=== PATIENT | female | born 1955 | race Caucasian/White ===

== ENCOUNTER 2017-12-12 12:36 | Outpatient (CLI) | payer OTHER ==
[2017-12-12 16:42] LABS: Hemoglobin 13.1 g/dL (12.0-16.0); Mean Corpuscular HGB CONC 33.9 g/dL (32.0-36.0); Mean Corpuscular Hemoglobin 31.2 pg (27.0-31.0); Mean Corpuscular Volume 92.1 fL (78.0-98.0); Platelet Count 280 thou/uL (130-400); RBC Distribution Width 11.7 % (11.5-14.5); Red Blood Cell (RBC) Count 4.19 mill/uL (4.20-5.40); White Blood Cell (WBC) Count 6.6 thou/uL (4.8-10.8)
[2017-12-12 17:03] LABS: Anion Gap 12 mmol/L (10-20); BUN (Urea Nitrogen) 18 mg/dL (9.8-20.1); Calc. Creatinine Clearance 0 mL/min (70-130); Carbon Dioxide 28 mmol/L (23-31); Chloride 103 mmol/L (98-107); Estimated GFR-MDRD 77; Glucose 91 mg/dL (80-115); Potassium 3.7 mmol/L (3.5-5.1); Sodium 139 mmol/L (136-145)
--- NOTE | 2017-12-13 13:28 | EKG ---
Test Reason : Blood Pressure : / mmHG Vent. Rate : 070 BPM Atrial Rate : 070 BPM P-R Int : 186 ms QRS Dur : 088 ms QT Int : 392 ms P-R-T Axes : 048 079 061 degrees QTc Int : 423 ms Normal sinus rhythm Normal ECG Confirmed by MARYANA OVIEDO ([id number]) on 12/13/2017 1:28:08 PM Referred By: FORTINO Confirmed By:MARYANA OVIEDO
== END 2017-12-12 12:37 | disposition home or self-care (01) ==
LOC: LABBT 12:36
PROVIDERS: ATTEND Obstetrics & Gynecology
DX: Z01.812 Encounter for preprocedural laboratory examination (principal); N81.10 Cystocele, unspecified
CPT/HCPCS: 80048; 85027; 86850; 86900; 86901; 93005; 93010

== ENCOUNTER 2017-12-12 15:30 | Observation (INO) | payer OTHER ==
[2017-12-12 15:36] VITALS: BMI 21.1
--- NOTE | 2017-12-13 00:23 | HP ---
HISTORY OF PRESENT ILLNESS: Ms. Medley is a 62-year-old white female with previous hysterectomy who has been experiencing pelvic organ prolapse symptoms. She feels a lot of pressure and discomfort in her vaginal area. She has considered a pessary and has tried that, but now is desiring surgical rep air. PAST MEDICAL HISTORY: Chronic hypertension. PAST SURGICAL HISTORY: Hysterectomy. MEDICATIONS: She is on Benicar/hydrochlorothiazide 20/12.5 mg daily for hypertension management. ALLERGIES: She has no known drug allergies. SOCIAL HISTORY: She is a nonsmoker, no significant alcohol use. She is . FAMILY HISTORY: Noncontributory. PHYSICAL EXAMINATION: VITAL SIGNS: Blood pressure is 116/64, weight 127 pounds, height 5 feet 5 inches, BMI 21.1, pulse is regular at 77, respirations 16. HEENT: Within normal limits. CHEST: Clear to auscultation. HEART: Regular rate and rhythm. S1, S2 heart sounds, no murmurs, rubs or gallops. ABDOMEN: Soft, nontender, nondistended with no palpable masses. PELVIC: Vulva and vagina had no lesions. She had grade 3 cystocele with minimal grade 1 to 2 anteri or vaginal wall prolapse with a grade 2 rectocele. ASSESSMENT: Symptomatic grade 3 cystocele and grade 2 rectocele with some grade 1 to 2 anterior vagi nal wall prolapse. PLAN: Proceed with anterior and posterior repair. Risks and benefits of procedure discussed in deta il to surgery. She is scheduled for surgery on 12/16/2017.
[2017-12-16] MEDS ORDERED: CEFAZOLIN/Water 2 GM/20 ML SYRINGE ONE (08:39)
[2017-12-16] MEDS ORDERED: Lidocaine 1% w/Epinephrine 1:100K 30 ML VIAL ONE (08:53)
[2017-12-16] MEDS ORDERED: Midazolam HCl 2 mg/2 ml Vial ONE (09:05)
[2017-12-16] MEDS ORDERED: Fentanyl 100 MCG/2 ML VIAL ONE ×2 (09:06→10:53)
[2017-12-16] MEDS ORDERED: SUGAMMADEX SODIUM 200 MG/2 ML VIAL ONE (10:23)
[2017-12-16] MEDS ORDERED: Ondansetron HCl/PF 4 MG/2 ML Vial IVP PRN ×2 (10:46→10:47)
[2017-12-16] MEDS ORDERED: Promethazine HCl 25 MG/ML VIAL IM PRN (10:46)
[2017-12-16] MEDS ORDERED: Meperidine HCl/PF 25 MG/ML VIAL SLOW IVP PRN (10:46)
[2017-12-16] MEDS ORDERED: Promethazine HCl 25 MG/ML VIAL SLOW IVP PRN (10:46)
[2017-12-16] MEDS ORDERED: Ketorolac Tromethamine 30 MG/ML VIAL IVP PRN (10:46)
[2017-12-16] MEDS ORDERED: diphenhydrAMINE 25 MG CAP PO PRN (10:47)
[2017-12-16] MEDS ORDERED: traMADol HCl 50 MG TAB PO PRN (10:47)
[2017-12-16] MEDS ORDERED: Acetaminophen 325 MG TAB PO PRN (10:47)
[2017-12-16] MEDS ORDERED: Simethicone Chewable 80 MG TAB PO PRN (10:47)
[2017-12-16] MEDS ORDERED: Lactated Ringer's 1,000 ML IV SCH (11:00)
--- NOTE | 2017-12-16 11:43 | OP ---
DATE OF PROCEDURE: 12/16/2017 PREOPERATIVE DIAGNOSES: A 62-year-old white female with previous hysterectomy with symptomatic grade 3 cystocele and grade 2 rectocele. POSTOPERATIVE DIAGNOSES: A 62-year-old white female with previous hysterectomy with symptomatic grad e 3 cystocele and grade 2 rectocele. PROCEDURE PERFORMED: Anterior and posterior repair. SURGEON: Evelyn Medina M.D. CLEANER INDUSTRIAL SURGEON: Aleida Harman M.D. ANESTHESIA: General endotracheal. ESTIMATED BLOOD LOSS: Less than 50 mL. COMPLICATIONS: None. COUNTS: Correct x2. ANTIBIOTICS: Two grams Ancef [employer] consultant to the OR. FINDINGS: 1. Urethral meatus appeared to be somewhat narrowed, but would allow passage of a size 12 [place] catheter easily with clear urine draining during the process. 2. Anterior cystocele reduced well and clear urine present in Zaragoza catheter post-procedure. 3. Grade 2 rectocele reduced well with no evidence of suture placement in the rectum on post-procedu re rectal examination. DISPOSITION: To the recovery room stable. DESCRIPTION OF OPERATIVE PROCEDURE: The patient previously received informed consent in regard to [facility]. She was taken back to the operating room where she received a general endotracheal anesthetic agent without complications. She was placed in dorsal lithotomy position with the use of Rishi stir rups and prepped and draped in usual sterile fashion. Zaragoza catheter was placed with the previously mentioned findings. A weighted speculum was placed in the vagina. The vaginal cuff line was grasped with 2 Allis clamps. The anterior vaginal mucosa was infiltrated with 1% lidocaine with epinephrine . A vaginal incision was made with Metzenbaum scissors starting from the cuff line to approximately 1.5 cm from the urethral meatus. The edges of the vaginal mucosa were grasped with Allis clamps, int ermittently as the cystocele was dissected both sharply and bluntly reducing the hernia. The endopel diana fascia was then immobilized and then the cystocele defect was then closed with interrupted figure -of-eight sutures of 0 Vicryl beginning most anteriorly near the urethral meatus site and then workin g back towards the vaginal cuff line. The cystocele was reduced in its entirety. The excess vaginal mucosa was trimmed and the vaginal mucosa was then approximated with interrupted [id number] sut ures of 2-0 Vicryl incorporating some of the endopelvic fascia to rid the space for good hemosta sis. Attention was then turned to the posterior repair. The vaginal introitus was grasped with 2 Allis cl amps at the 4 and 8 o'clock position. The posterior vaginal mucosa again was infiltrated with 1% lid ocaine with epinephrine up to the vaginal cuff line. A midline vaginal mucosal incision was made in the posterior vagina with Metzenbaum scissors. This extended up to the cuff line. The edges of the vaginal mucosa were grasped with Allis clamps as this progressed. The rectocele defect again was dagmar ntly and sharply dissected reducing it from the underlying vaginal mucosa and also mobilizing the end opelvic fascia bilaterally. Once the rectocele defect had been reduced, the endopelvic fascia again was plicated in the midline grabbing the edges of the endopelvic fascia and closing this with 0 Vicry l sutures in [id number] stitch fashion starting most proximally towards the vaginal cuff line an d working back towards the introitus. Good reduction of the rectocele was confirmed. The posterior vaginal mucosa was then closed again starting from the cuff line back to the introitus with interrupt ed 2-0 Vicryl sutures incorporating again endopelvic fascia. A rectal exam was then performed and no evidence of an suture placed in the rectal mucosa was noted. A moistened Kerlix was placed. Packin g was placed in the vagina. The Zaragoza catheter was draining clear urine. The patient was awakened f rom anesthesia and transferred to the recovery in stable condition.
[2017-12-16] MEDS ORDERED: Glycopyrrolate 0.2 MG/ML 5 ML SYRINGE ONE (14:28)
[2017-12-16] MEDS ORDERED: diphenhydrAMINE 50 MG/ML VIAL ONE (14:28)
[2017-12-16] MEDS ORDERED: Lidocaine 1% PF 5 ML VIAL ONE (14:28)
[2017-12-16] MEDS ORDERED: Ondansetron HCl/PF 4 MG/2 ML Vial ONE (14:28)
[2017-12-16] MEDS ORDERED: PROPOFOL 200 MG/20 ML VIAL ONE (14:28)
[2017-12-16] MEDS ORDERED: Dexamethasone 20 MG/5 ML VIAL ONE (14:28)
[2017-12-16] MEDS ORDERED: Ibuprofen 800 MG TAB PO SCH (21:00)
[2017-12-16] MEDS ORDERED: Docusate Calcium (SURFAK) 240 MG CAP PO SCH (21:00)
[2017-12-16] MEDS: traMADol HCl 50 MG TAB PO PRN (21:01)
[2017-12-17] MEDS: traMADol HCl 50 MG TAB PO PRN (02:31)
--- NOTE | 2017-12-17 07:38 | PDOC.EVN ---
Event Note - Event Note Event Note: Tolerating diet. Ambulated and voiding. O:AFVSS. PVR's 125 ml last void--voiding over 200 ml. abdomen soft/non tender. Perineum intact and dry A/P post op day 1 from anterior and posterior repair. Doing well. D/c this AM after one more pvr check-Ok if remains <150 ml. Has f/u in 2 weeks.
[2017-12-17 08:08] VITALS: BP 129/63; TEMP 98.2
[2017-12-17] MEDS ORDERED: Hydrochlorothiazide 25 MG TAB PO SCH (09:00)
== END 2017-12-17 10:00 | disposition home or self-care (01) ==
LOC: SURG A 12-16 07:19 → INTOOBSV 12-16 07:19 → 3SE 12-16 12:01
PROVIDERS: ADMIT Obstetrics & Gynecology; ATTEND Obstetrics & Gynecology
PROC: 0JQC0ZZ Repair Pelvic Region Subcutaneous Tissue and Fascia, Open Approach (ICD-10-PCS; principal; 2017-12-16)
PROC: 0JQC0ZZ Repair Pelvic Region Subcutaneous Tissue and Fascia, Open Approach (ICD-10-PCS; 2017-12-16)
DX: N81.10 Cystocele, unspecified (principal); N81.6 Rectocele; I10 Essential (primary) hypertension; Z79.899 Other long term (current) drug therapy
CPT/HCPCS: 96361; 96374; A4216; G0378; J1100; J1200; J2001; J2250; J2270; J2405; J2704; J3010